=== PATIENT | female | born 1945 | race Caucasian/White ===

== ENCOUNTER 2017-01-21 07:22 | Outpatient (CLI) | payer MEDICARE, OTHER ==
[2017-01-21 18:08] LABS: Anion Gap 19 mmol/L (10-20); BUN (Urea Nitrogen) 32 mg/dL (9.8-20.1); Calc. Creatinine Clearance 0 mL/min (70-130); Calcium 10.2 mg/dL (7.8-10.44); Carbon Dioxide 22 mmol/L (23-31); Chloride 101 mmol/L (98-107); Estimated GFR-MDRD 34; Glucose 88 mg/dL (80-115); Potassium 4.6 mmol/L (3.5-5.1); Sodium 137 mmol/L (136-145)
== END 2017-01-21 07:23 ==
LOC: MADLAB 07:22
PROVIDERS: ATTEND Urology
DX: R79.9 Abnormal finding of blood chemistry, unspecified (principal); Q61.01 Congenital single renal cyst
CPT/HCPCS: 36415; 80048

== ENCOUNTER 2017-06-24 12:08 | Outpatient (CLI) | payer MEDICARE, OTHER ==
--- NOTE | 2017-06-24 13:22 | RAD ---
LUMBAR SPINE SERIES 5 VIEWS: HISTORY: Back pain. FINDINGS: Vertebral bodies are normal in height. There are degenerative osteophytes along the course of the s pine also with degenerative facet changes. There is mild disk narrowing at all the vertebral body l evels. There is a grade I spondylolisthesis of L3 on L4. 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 Pedicles are intact. IMPRESSION: Moderate osteoarthritic changes of the spine. The spondylolisthesis of L3 on L4 appears to minimall y increase in flexion. The minimal spondylolisthesis of L4 on L5 appears relatively stable. POS: OFF
--- NOTE | 2017-06-24 13:27 | CT ---
CT OF LUMBAR SPINE PERFORMED WITHOUT CONTRAST ENHANCEMENT: HISTORY: Back pain radiating down the left leg. FINDINGS: Vertebral bodies maintain normal height. There is some mild generalized disk narrowing present. Th ere is a pseudoarthrosis of the left L5 transverse process with the sacrum. There is no significant periaortic adenopathy and the visualized portions of the kidneys show a partially visualized hypoin tense lesion involving the left kidney which has been described on a previous ultrasound as represen ting a cyst. T12-L1: Borderline canal narrowing. No signs of any significant canal stenosis. L1-2: Once again, borderline canal stenosis. No lateralizing disk appreciated on this noncontrast study. L2-3: There appears to be a moderately severe canal narrowing with disk bulging as well as facet an d ligamentous hypertrophic change. L3-4: The minimal spondylolisthesis of L3 on L4 is noted. There is associated pronounced degenerat sae facet changes and a severe degree of canal narrowing. L4-5: A minimal spondylolisthesis is seen at this level. There is disk bulging as well as fat and ligamentous hypertrophic changes contributing to the severe degree of canal narrowing. The disk tato nges also appear slightly asymmetric to the right side. This is contributing to right-sided foramin al narrowing. There could be a lateral disk protrusion present. L5-S1: No significant canal or foraminal stenosis. IMPRESSION: Moderate arthritic changes of the spine with pseudoarthrosis of the left L5 transverse process with the sacrum. Areas of moderate canal stenosis as discussed above. POS: OFF
== END 2017-06-24 12:09 | disposition home or self-care (01) ==
LOC: MADRAD 12:08
PROVIDERS: ATTEND Neurological Surgery
DX: M47.26 Other spondylosis with radiculopathy, lumbar region (principal); M48.061 Spinal stenosis, lumbar region without neurogenic claudication; M43.16 Spondylolisthesis, lumbar region
CPT/HCPCS: 72110; 72131

== ENCOUNTER 2017-09-08 10:57 | Emergency (ER) | payer MEDICARE, OTHER ==
[2017-09-08] MEDS ORDERED: Ibuprofen 800 MG TAB ONE (12:40)
[2017-09-08] MEDS ORDERED: AMOXicillin 250 MG CAP ONE (12:40)
[2017-09-08] MEDS ORDERED: Benzonatate 100 MG CAP ONE (12:40)
== END 2017-09-08 12:47 | disposition home or self-care (01) ==
LOC: MADERS 10:57
DX: J20.9 Acute bronchitis, unspecified (principal); E78.5 Hyperlipidemia, unspecified; I25.10 Atherosclerotic heart disease of native coronary artery without angina pectoris; I10 Essential (primary) hypertension; M54.30 Sciatica, unspecified side; Z79.82 Long term (current) use of aspirin; Z79.899 Other long term (current) drug therapy
CPT/HCPCS: 87081; 87430; 99283

== ENCOUNTER 2018-03-15 18:48 | Emergency (ER) | payer MEDICARE, OTHER ==
[2018-03-15 19:18] LABS: Bilirubin Negative (Negative); Blood, Urine Moderate (Negative); Clarity Turbid (Clear); Glucose, Urine (Dipstick) Negative (Negative); Leukocyte Large (Negative); Nitrite Negative (Negative); Protein, Urine (Dipstick) 100 mg/dL (Neg-Trace); Urobilinogen 0.2 mg/dL (0.2-1.0)
[2018-03-15 19:22] LABS: Bacteria/HPF 4+ HPF (None Seen); Renal Epithelial 0-3 HPF (0-3); Yeast-All Forms 1+ HPF (None Seen)
[2018-03-15] MEDS ORDERED: cefTRIAXone\\ROCEPHIN 1 GM VIAL ONE (19:27)
== END 2018-03-15 19:52 | disposition home or self-care (01) ==
LOC: MADERS 18:48
DX: N39.0 Urinary tract infection, site not specified (principal); E78.5 Hyperlipidemia, unspecified; I10 Essential (primary) hypertension; I25.10 Atherosclerotic heart disease of native coronary artery without angina pectoris; Z79.82 Long term (current) use of aspirin; Z79.899 Other long term (current) drug therapy
CPT/HCPCS: 81003; 81015; 87077; 87086; 87186; 96372; J0696

== ENCOUNTER 2020-04-03 09:44 | Outpatient (CLI) | payer MEDICARE, OTHER ==
--- NOTE | 2020-04-03 10:22 | RAD ---
LUMBAR SPINE 3 VIEWS: HISTORY: Lumbar spondylolisthesis. COMPARISON: Comparison is made to lumbar films of 02/14/2020. FINDINGS: Postoperative changes are again noted in the lower lumbar spine with pedicle screws and rods transfix ing L3, L4, and L5. Disk implants at L3-4 and L4-5 again noted. Loss of disk space at L5-S1 with ev idence of interbody fusion at this level. Mild anterolisthesis at L4-5 is less today than on the prior study. This anterolisthesis measures ap proximately 4 mm today. A previous measurement measured 8-10 mm. Minimal anterolisthesis at L3-4 is stable. The degenerative changes appear stable. No evidence of l oosening of the pedicle screws. IMPRESSION: Degenerative postoperative changes again noted. The anterolisthesis at L4-5 is slightly less today t fernandes when compared to the prior study. POS: AH
== END 2020-04-03 09:45 | disposition home or self-care (01) ==
LOC: MADRAD 09:44
PROVIDERS: ATTEND Neurological Surgery
DX: M43.16 Spondylolisthesis, lumbar region (principal); M47.816 Spondylosis without myelopathy or radiculopathy, lumbar region; Z98.890 Other specified postprocedural states
CPT/HCPCS: 72100

== ENCOUNTER 2023-02-04 12:45 | Emergency (ER) | payer MEDICARE, OTHER ==
[2023-02-04] MEDS ORDERED: Ondansetron PF 4 MG/2 ML Vial ONE (14:07)
[2023-02-04] MEDS ORDERED: Morphine 4 MG/ML VIAL ONE ×3 (14:07→19:27)
[2023-02-04 14:45] LABS: #Basophils 0.1 thou/uL (0.0-0.2); #Eosinphils 0.1 thou/uL (0.0-0.7); #Lymphocytes 2.2 thou/uL (1.20-3.40); #Monocytes 0.5 thou/uL (0.11-0.59); %Basophils 0.7 % (0.0-1.0); %Eosinophils 0.5 % (0.0-10.0); %Lymphocytes 16.8 % (21.0-51.0); %Monocytes 3.9 % (0.0-10.0); %Neutrophils 78.1 % (42.0-75.0); Hemoglobin 12.3 g/dL (12.0-16.0); Mean Corpuscular HGB CONC 32.8 g/dL (32.0-36.0); Mean Corpuscular Hemoglobin 31.1 pg (27.0-31.0); Mean Platelet Volume 11.1 fL (7.4-10.4); Platelet Count 280 10x3/uL (130-400); RBC Distribution Width 12.2 % (11.5-14.5); Red Blood Cell (RBC) Count 3.95 mill/uL (4.20-5.40); White Blood Cell (WBC) Count 12.8 10x3/uL (4.8-10.8)
[2023-02-04 14:59] LABS: ALT (SGPT) 24 U/L (8-55); AST (SGOT) 27 U/L (5-34); Albumin 4.4 g/dL (3.4-4.8); Alkaline Phosphatase 57 U/L (40-110); Anion Gap 18 mmol/L (10-20); BUN (Urea Nitrogen) 42 mg/dL (9.8-20.1); Bilirubin, Total 0.4 mg/dL (0.2-1.2); Calc. Creatinine Clearance 0 mL/min (70-130); Calcium 10.5 mg/dL (7.8-10.44); Carbon Dioxide 18 mmol/L (23-31); Chloride 104 mmol/L (98-107); Estimated GFR 26; Globulin 2.8 g/dL (2.4-3.5); Glucose 95 mg/dL (83-110); Potassium 5.8 mmol/L (3.5-5.1); Protein, Total 7.2 g/dL (5.8-8.1); Sodium 134 mmol/L (136-145)
== END 2023-02-04 21:03 | disposition short-term general hospital (02) ==
LOC: MADERS 12:45
DX: S72.142A Displaced intertrochanteric fracture of left femur, initial encounter for closed fracture (principal); S93.402A Sprain of unspecified ligament of left ankle, initial encounter; E78.5 Hyperlipidemia, unspecified; I10 Essential (primary) hypertension; Z79.899 Other long term (current) drug therapy; Z79.82 Long term (current) use of aspirin; W19.XXXA Unspecified fall, initial encounter; Y92.009 Unspecified place in unspecified non-institutional (private) residence as the place of occurrence of the external cause
CPT/HCPCS: 80053; 85025; 96374; 96375; 96376; J2270; J2405

== ENCOUNTER 2025-05-22 07:14 | Outpatient (CLI) | payer MEDICARE, OTHER ==
[2025-05-22 07:45] LABS: ALT (SGPT) 14 U/L (Less than 34); AST (SGOT) 25 U/L (11-34); Albumin 4.3 g/dL (3.1-4.5); Alkaline Phosphatase 54 U/L (40-110); Anion Gap 15 mmol/L (10-20); BUN (Urea Nitrogen) 23 mg/dL (9.8-20.1); Bilirubin, Total 0.5 mg/dL (0.3-1.2); Calc. Creatinine Clearance 0 mL/min (70-130); Calcium 9.5 mg/dL (7.8-10.44); Carbon Dioxide 23 mmol/L (23-31); Cardiac Risk 2.0 (Less than 4.5); Chloride 106 mmol/L (98-107); Cholesterol 104 mg/dl (< 200 Desired); Globulin 2.7 g/dL (2.4-3.5); Glucose 81 mg/dL (83-110); HDL Cholesterol 53 mg/dL (>60 Neg Risk); LDL Cholesterol, Calculated 35 mg/dL; Potassium 4.1 mmol/L (3.5-5.1); Sodium 140 mmol/L (136-145); Triglycerides 80 mg/dL (Less than 150); Uric Acid 5.0 mg/dL (2.5-6.2)
== END 2025-05-22 07:15 | disposition home or self-care (01) ==
LOC: MADLAB 07:14
PROVIDERS: ATTEND Specialist
DX: I10 Essential (primary) hypertension (principal); E78.2 Mixed hyperlipidemia; E55.9 Vitamin D deficiency, unspecified; E79.0 Hyperuricemia without signs of inflammatory arthritis and tophaceous disease
CPT/HCPCS: 36415; 80053; 80061; 82306; 83036; 84443; 84550

== ENCOUNTER 2025-06-01 13:21 | Emergency (ER) | payer MEDICARE, OTHER ==
[2025-06-01 13:48] LABS: Glucose, Urine (Dipstick) Negative (Negative); Leukocyte Large (Negative); Protein, Urine (Dipstick) Negative (Neg-Trace); Specific Gravity, Urine 1.015 (1.005-1.030)
[2025-06-01 13:58] LABS: Bacteria/HPF Rare-Few HPF (None Seen); CAUTI Indications for Culture Dysuria,urgency,freq; WBC/HPF Greater Than 50 HPF (0-3)
[2025-06-01 13:59] LABS: Urine Culture Reflex Yes Yes
== END 2025-06-01 14:03 | disposition home or self-care (01) ==
LOC: MADERS 13:21
DX: N39.0 Urinary tract infection, site not specified (principal); I10 Essential (primary) hypertension; I25.10 Atherosclerotic heart disease of native coronary artery without angina pectoris
CPT/HCPCS: 81001; 87086; 99283

== ENCOUNTER 2025-07-24 08:09 | Outpatient (CLI) | payer MEDICARE, OTHER ==
[2025-07-24 08:38] LABS: Glucose, Urine (Dipstick) Negative (Negative); Leukocyte Small (Negative); Protein, Urine (Dipstick) Negative (Neg-Trace); Specific Gravity, Urine 1.020 (1.005-1.030)
[2025-07-24 08:51] LABS: #Basophils 0.1 thou/uL (0.0-0.2); #Eosinophils 0.1 thou/uL (0.0-0.7); #Lymphocytes 2.1 thou/uL (1.20-3.40); #Monocytes 0.4 thou/uL (0.11-0.59); #Neutrophils 5.9 thou/uL (1.40-6.50); %Basophils 1.1 % (0.0-1.0); %Eosinophils 0.8 % (0.0-10.0); %Lymphocytes 24.0 % (21.0-51.0); %Monocytes 4.7 % (0.0-10.0); %Neutrophils 69.3 % (42.0-75.0); Hematocrit 39.6 % (36.0-47.0); Hemoglobin 11.9 g/dL (12.0-16.0); Mean Corpuscular Hemoglobin 29.9 pg (27.0-31.0); Mean Corpuscular Volume 99.9 fl (78.0-98.0); Platelet Count 267 10x3/uL (130-400); Red Blood Cell (RBC) Count 3.96 mill/uL (4.20-5.40); White Blood Cell (WBC) Count 8.5 10x3/uL (4.8-10.8)
[2025-07-24 09:01] LABS: Albumin 4.1 g/dL (3.1-4.5); Anion Gap 15 mmol/L (10-20); BUN (Urea Nitrogen) 19 mg/dL (9.8-20.1); Calc. Creatinine Clearance 0 mL/min (70-130); Calcium 9.5 mg/dL (7.8-10.44); Carbon Dioxide 22 mmol/L (23-31); Chloride 107 mmol/L (98-107); Glucose 85 mg/dL (83-110); Magnesium 1.8 mg/dL (1.6-2.6); Potassium 3.9 mmol/L (3.5-5.1); Sodium 140 mmol/L (136-145)
[2025-07-24 17:08] LABS: Protein, Urine Random Quant Less than 10 mg/dL (1-14)
== END 2025-07-24 08:10 | disposition home or self-care (01) ==
LOC: MADLAB 08:09
PROVIDERS: ATTEND Specialist
DX: I12.9 Hypertensive chronic kidney disease with stage 1 through stage 4 chronic kidney disease, or unspecified chronic kidney disease (principal); N18.30 Chronic kidney disease, stage 3 unspecified; E55.9 Vitamin D deficiency, unspecified
CPT/HCPCS: 36415; 80048; 81003; 82040; 82043; 82306; 83735; 83970; 84100; 84156; 85025

== ENCOUNTER 2025-08-21 08:07 | Emergency (ER) | payer MEDICARE, OTHER ==
[2025-08-21 09:21] LABS: Glucose, Urine (Dipstick) Negative (Negative); Leukocyte Small (Negative); Protein, Urine (Dipstick) 100 mg/dL (Neg-Trace); Specific Gravity, Urine 1.020 (1.005-1.030)
[2025-08-21 09:25] LABS: Bacteria/HPF 4+ HPF (None Seen); CAUTI Indications for Culture Pelvic or flank pain; RBC/HPF 0-3 HPF (0-3); WBC/HPF Greater Than 50 HPF (0-3)
[2025-08-21 09:26] LABS: Urine Culture Reflex Yes Yes
== END 2025-08-21 09:38 | disposition home or self-care (01) ==
LOC: MADERS 08:07
DX: N39.0 Urinary tract infection, site not specified (principal); I10 Essential (primary) hypertension; E78.5 Hyperlipidemia, unspecified; I25.10 Atherosclerotic heart disease of native coronary artery without angina pectoris; Z85.3 Personal history of malignant neoplasm of breast; Z79.82 Long term (current) use of aspirin; Z79.899 Other long term (current) drug therapy
CPT/HCPCS: 81001; 87077; 87086; 99283

== ENCOUNTER 2025-09-03 08:38 | Outpatient (CLI) | payer MEDICARE, OTHER ==
[2025-09-03 09:19] LABS: Cardiac Risk 2.0 (Less than 4.5); Cholesterol 109.0 mg/dl (< 200 Desired); HDL Cholesterol 55.0 mg/dL (>60 Neg Risk); LDL Cholesterol, Calculated 37.0 mg/dL; Triglycerides 87.0 mg/dL (Less than 150)
== END 2025-09-03 08:39 | disposition home or self-care (01) ==
LOC: MADLAB 08:38
PROVIDERS: ATTEND Specialist
DX: E78.2 Mixed hyperlipidemia (principal); I10 Essential (primary) hypertension; R53.83 Other fatigue
CPT/HCPCS: 36415; 80061; 83036; 83880; 84443